=== PATIENT | female | born 1990 | race Hispanic/Latino ===

== ENCOUNTER 2018-12-13 17:00 | Inpatient (IN) | payer BC, MEDICAID ==
[~2018-12-13] VITALS: Ht 152.4 cm; Wt 73.9 kg
[2018-12-20] MEDS ORDERED: LACTATED RINGERS 1000ML 1,000 ML IV ONE (08:57)
[2018-12-20] MEDS ORDERED: LACTATED RINGERS 1000ML 1,000 ML IV SCH ×2 (09:00)
[2018-12-20] MEDS ORDERED: CEFAZOLIN SODIUM 1 GM VIAL IVP PRN ×2 (09:00)
[2018-12-20] MEDS ORDERED: LACTATED RINGERS 1000ML 1,000 ML IV PRN (09:01)
[2018-12-20 09:10] LABS: HEMATOCRIT 38.2 % (36-48); MEAN CORPUSCULAR HEMOGLOBIN 29.8 pg (27.0-33.0); MEAN CORPUSCULAR HGB CONC 34.4 g/dL (32.0-36.0); MEAN CORPUSCULAR VOLUME 86.6 fL (79-99); PLATELET COUNT (AUTO) 259 K/uL (130-400); RED BLOOD CELL COUNT(AUTO) 4.41 MIL/uL (4.00-5.50); RED CELL DISTRIBUTION WIDTH 16.5 % (11.0-15.5); WHITE BLOOD COUNT (AUTO) 7.7 K/uL (4.8-10.8)
[2018-12-20 09:11] LABS: APPEARANCE,URINE Clear (CLEAR); BILIRUBIN,URINE Negative (NEGATIVE); COLOR,URINE Yellow (YELLOW); GLUCOSE, URINE (UA) Negative (NEGATIVE); KETONES,URINE Negative (NEGATIVE); LEUKOCYTE ESTERASE ,URINE Trace (NEGATIVE); NITRATE,URINE Negative (NEGATIVE); OCCULT BLOOD,URINE Negative (NEGATIVE); PH,URINE 6.5 (5.0-8.0); PROTEIN,URINE Negative (NEGATIVE); UROBILINOGEN,URINE 0.2 mg/dL (0.2-1.0)
[2018-12-20 09:26] LABS: BACTERIA,URINE Rare /HPF (None Seen); MUCUS,URINE Rare LPF (None Seen); RBC,URINE 0-1 /HPF (0-1); SQUAMOUS EPITHELIAL CELL,UR Moderate /HPF (0-2); WBC,URINE 0-1 /HPF (0-1)
[2018-12-20] MEDS ORDERED: OXYTOCIN 10 USP UNITS/ML ONE (13:33)
[2018-12-20] MEDS ORDERED: DURAMORPH PF1 MG/ML 10ML AMP IV ONE (13:33)
[2018-12-20] MEDS ORDERED: GLYCOPYRROLATE 1 MG/5 ML SYRINGE ONE (13:45)
[2018-12-20] MEDS ORDERED: EPHEDRINE SULFATE 50 MG/ML AMPULE ONE (13:47)
[2018-12-20] MEDS ORDERED: ONDANSETRON HCL 4 MG/2 ML VIAL ONE (14:13)
[2018-12-20 16:25] VITALS: BP 151/55
--- NOTE | 2018-12-20 16:30 | NUR ---
ASSESSMENT FUNDUS IS FIRM, BLEEDING IS SCANT. DRESSING IS DRY AND INTACT. ASSISTED PATIENT IN LATCHING BABY SUCCESSFULLY TO RIGHT BREAST. ORIENTED PATIENT TO ROOM. AT BEDSIDE. CALL LIGHT LEFT IN REACH.
[2018-12-20] MEDS ORDERED: SODIUM CHLORIDE 0.9% 10 ML VIAL IVP PRN (17:15)
[2018-12-20] MEDS ORDERED: PROMETHAZINE HCL 25 MG/ML 1ML AMPULE IM PRN (17:15)
[2018-12-20] MEDS ORDERED: MEPERIDINE-PF 75 MG/ML SYG IM PRN (17:15)
[2018-12-20] MEDS ORDERED: DEXTROSE 5 %-0.45 % NACL 1,000 ML IV PRN (17:15)
[2018-12-20] MEDS ORDERED: OXYTOCIN-LR 20 UNITS/1000 ML 1,000 ML IV PRN (17:15)
[2018-12-20] MEDS ORDERED: NALOXONE HCL 0.4 MG/1 ML ML IVP PRN ×3 (18:30→18:45)
[2018-12-20] MEDS ORDERED: DiphenhydrAMINE HCL 50 MG/ML VIAL IVP PRN (18:45)
[2018-12-20] MEDS ORDERED: ONDANSETRON HCL 4 MG/2 ML VIAL IVP PRN (18:45)
[2018-12-20] MEDS ORDERED: EPHEDRINE SULFATE 50 MG/ML AMPULE IVP PRN (18:45)
[2018-12-20 19:18] VITALS: BP 115/55
--- NOTE | 2018-12-20 19:40 | NUR ---
Activity: Patient lying in bed with baby in her arms, IV of LR with 20 units of Pitocin infusing well, Islas Catheter patent. Fundus firm with small Lochia rubra. Plan of care discussed with patient, verbalizes understanding.
[2018-12-20] MEDS ORDERED: PREN-66 PO (21:49)
[2018-12-20] MEDS ORDERED: FERR-82 PO (21:49)
[2018-12-20 23:20] VITALS: BP 96/56
[2018-12-21 03:30] VITALS: BP 101/64
[2018-12-21] MEDS ORDERED: MEPERIDINE-PF 50 MG/ML SYG ONE (03:34)
[2018-12-21] MEDS ORDERED: MEPERIDINE-PF 25 MG/ML SYG ONE (03:35)
--- NOTE | 2018-12-21 06:45 | NUR ---
Activity: Patient up at bedside chair, Islas catheter taken out. Patient tolerated it well. Advice to call foe help if needed specifically when she gets up to the bathroom the first time to prevent fall.
[2018-12-21 06:48] LABS: HEMATOCRIT 31.8 % (36-48); MEAN CORPUSCULAR HEMOGLOBIN 29.6 pg (27.0-33.0); MEAN CORPUSCULAR HGB CONC 33.8 g/dL (32.0-36.0); MEAN CORPUSCULAR VOLUME 87.4 fL (79-99); PLATELET COUNT (AUTO) 205 K/uL (130-400); RED BLOOD CELL COUNT(AUTO) 3.64 MIL/uL (4.00-5.50); RED CELL DISTRIBUTION WIDTH 16.4 % (11.0-15.5); WHITE BLOOD COUNT (AUTO) 11.6 K/uL (4.8-10.8)
[2018-12-21 07:42] VITALS: BP 96/56
[2018-12-21 08:12] LABS: HEPATITIS Bs ANTIGEN SCREEN P Negative (Negative)
[2018-12-21] MEDS: IBUPROFEN 600 MG TABLET PO PRN ×2 (09:14→17:49)
[2018-12-21] MEDS ORDERED: LANOLIN 30GM OINTMENT TP PRN (09:15)
[2018-12-21] MEDS: SIMETHICONE 80 MG TAB.CHEW PO PRN ×3 (09:15→21:38)
[2018-12-21] MEDS ORDERED: ACETAMINOPHEN EXTRA STRENGTH 500 MG TABLET PO PRN (09:15)
[2018-12-21] MEDS ORDERED: BISACODYL 10 MG SUPP.RECT RC PRN (09:15)
[2018-12-21] MEDS ORDERED: ACETAMINOPHEN-CODEINE 300/30MG TAB PO PRN (09:15)
[2018-12-21] MEDS ORDERED: HYDROCODONE/ACETAMINOPHEN 5/325 MG TAB PO PRN (09:15)
[2018-12-21 11:26] VITALS: BP 101/64
--- NOTE | 2018-12-21 13:25 | NUR ---
PATIENT REPORTED BEING ABLE TO VOID. 500 ML MEASURED IN NUN'S HAT
[2018-12-21 16:15] VITALS: BP 104/61
--- NOTE | 2018-12-21 16:20 | NUR ---
ACTIVITY PATIENT AMBULATING IN HALLWAY ACCOMPANIED BY SIGNIFICANT OTHER. ABDOMEN APPEARS DISTENDED. PATIENT STATES SHE HAS NOT PASSED FLATUS. DULCOLAX SUPPOSITORY OFFERED, PATIENT DECLINED. ADVISED PATIENT TO CONTINUE AMBULATING
[2018-12-21 19:15] VITALS: BP 120/69
[2018-12-21] MEDS: DOCUSATE SODIUM 100 MG CAP PO SCH (21:38)
[2018-12-21 23:35] VITALS: BP 104/65
[2018-12-22 03:47] VITALS: BP 109/58
[2018-12-22] MEDS: IBUPROFEN 600 MG TABLET PO PRN ×2 (06:37→17:28)
[2018-12-22 07:44] VITALS: BP 110/62
[2018-12-22] MEDS: SIMETHICONE 80 MG TAB.CHEW PO PRN ×2 (08:50→21:28)
[2018-12-22] MEDS: DOCUSATE SODIUM 100 MG CAP PO SCH ×2 (08:50→21:29)
[2018-12-22 11:07] VITALS: BP 102/57
[2018-12-22 15:42] VITALS: BP 108/65
--- NOTE | 2018-12-22 17:55 | NUR ---
PATIENT AMBULATING TO NURSERY TO FEED BABY. NO C/O DIZZINESS REPORTED.
[2018-12-22 19:34] VITALS: BP 108/73
[2018-12-23 00:26] VITALS: BP 101/51
[2018-12-23 03:41] VITALS: BP 121/78
[2018-12-23] MEDS: IBUPROFEN 600 MG TABLET PO PRN ×2 (03:46→08:57)
[2018-12-23 08:00] VITALS: BP 129/74
[2018-12-23] MEDS: DOCUSATE SODIUM 100 MG CAP PO SCH (08:55)
[2018-12-23] MEDS: SIMETHICONE 80 MG TAB.CHEW PO PRN (08:55)
--- NOTE | 2018-12-23 09:00 | NUR ---
DR. HOOK ROUNDED AND DISCHARGED PT TO HOME
[2018-12-23 13:06] VITALS: BP 120/79
--- NOTE | 2018-12-23 13:15 | NUR ---
DISCHARGE INSTRUCTIONS GIVEN AND VERBALIZED UNDERSTANDING INSTRUCTIONS GIVEN. HAS NO IV TO REMOVE. SCRIPT FOR TYLENOL #3 GIVEN AND INSTRUCTED ON DOSAGE FOR MOTRIN OVER THE COUNTER TO TAKE FOR MILD PAIN.
--- NOTE | 2018-12-23 13:30 | NUR ---
PATIENT WAS TAKEN VIA W/C TO FAMILY VEHICLE AND WAS DISCHARGED WITH BABY TO SPOUSE. PATIENT STABLE AND DENIES PAIN AT THIS TIME.
== END 2018-12-23 13:30 | disposition home or self-care (01) | DRG 788 ==
LOC: LDH 12-20 08:34 → EDSTATUS 12-20 10:30 → WSH 12-20 16:23
PROVIDERS: ADMIT Specialist; ATTEND Specialist
PROC: 10D00Z1 Extraction of Products of Conception, Low, Open Approach (ICD-10-PCS; principal; 2018-12-20 10:30)
DX: O36.63X0 Maternal care for excessive fetal growth, third trimester, not applicable or unspecified (principal); Z37.0 Single live birth; Z3A.41 41 weeks gestation of pregnancy; O34.40 Maternal care for other abnormalities of cervix, unspecified trimester
CPT/HCPCS: 36415; 59510; 81001; 85027; 86592; 86850; 86900; 86901; 87340; G0378; J0690; J2175; J2274; J2405; J2550; J2590; J3490; J7120

== ENCOUNTER 2021-06-22 05:56 | Inpatient (IN) | payer OTHER ==
[~2021-06-22] VITALS: Ht 152.4 cm; Wt 75.3 kg
[~2021-06-22 05:56] MED LIST: FERR-82 PO; PREN-66 PO
[2021-06-22] MEDS ORDERED: LACTATED RINGERS 1000ML 1,000 ML IV SCH (06:00)
[2021-06-22] MEDS ORDERED: CEFAZOLIN SODIUM 1 GM VIAL IVP PRN (06:00)
[2021-06-22 07:04] LABS: HEMATOCRIT 33.5 % (36-48); MEAN CORPUSCULAR HEMOGLOBIN 27.2 pg (27.0-33.0); MEAN CORPUSCULAR HGB CONC 32.5 g/dL (32.0-36.0); MEAN CORPUSCULAR VOLUME 83.5 fL (79-99); RED BLOOD CELL COUNT(AUTO) 4.01 MIL/uL (4.00-5.50); RED CELL DISTRIBUTION WIDTH 14.6 % (11.0-15.5)
[2021-06-22] MEDS ORDERED: OXYTOCIN-LR 20 UNITS/1000 ML 1,000 ML IV ONE (07:54)
[2021-06-22] MEDS ORDERED: CALDOLOR 800MG+NS 250ML 250 ML IV ONE (08:00)
[2021-06-22] MEDS ORDERED: CALDOLOR 800MG+NS 250ML 250 ML IV PRN (08:00)
[2021-06-22] MEDS ORDERED: MORPHINE PF 100MG/10ML AMP IV ONE (09:18)
[2021-06-22] MEDS ORDERED: EPHEDRINE SULFATE 50 MG/ML AMPULE ONE (09:27)
[2021-06-22] MEDS ORDERED: ONDANSETRON 4MG INJ ONE (09:32)
[2021-06-22] MEDS ORDERED: PROMETHAZINE HCL 25 MG/ML 1ML AMPULE IM PRN (10:30)
[2021-06-22] MEDS ORDERED: OXYTOCIN-LR 20 UNITS/1000 ML 1,000 ML IV PRN (10:30)
[2021-06-22] MEDS ORDERED: MEPERIDINE-PF 75 MG/ML SYG IM PRN (10:30)
[2021-06-22] MEDS ORDERED: 0.9%NACL 10ML VIAL IVP PRN (10:30)
[2021-06-22] MEDS ORDERED: DiphenhydrAMINE HCL 50 MG/ML VIAL IVP PRN (11:30)
[2021-06-22] MEDS ORDERED: ONDANSETRON 4MG INJ IVP PRN (11:30)
[2021-06-22] MEDS ORDERED: ROPIVACAINE 0.2% 100ML VIAL 100 ML EP SCH (11:30)
[2021-06-22] MEDS ORDERED: EPHEDRINE SULFATE 50 MG/ML AMPULE IVP PRN (11:30)
[2021-06-22] MEDS ORDERED: NALOXONE HCL 0.4 MG/1 ML ML IVP PRN ×2 (11:30)
[2021-06-22 12:20] VITALS: BP 109/60
[2021-06-22 12:30] VITALS: BP 103/67
[2021-06-22 16:18] VITALS: BP 115/69
[2021-06-22] MEDS: DEXTROSE 5 %-0.45 % NACL 1,000 ML IV PRN (16:48)
[2021-06-22] MEDS: CALDOLOR 800MG+NS 250ML 250 ML IV SCH (18:25)
[2021-06-22 19:40] VITALS: BP 114/72
[2021-06-22 23:20] VITALS: BP 105/75
[2021-06-23] MEDS ORDERED: ACETAMINOPHEN WITH CODEINE 1 TAB TAB PO PRN (00:30)
[2021-06-23] MEDS: DEXTROSE 5 %-0.45 % NACL 1,000 ML IV PRN (01:32)
[2021-06-23] MEDS: CALDOLOR 800MG+NS 250ML 250 ML IV SCH (02:01)
[2021-06-23 03:06] VITALS: BP 96/56
[2021-06-23 07:55] VITALS: BP 131/76
[2021-06-23] MEDS ORDERED: HYDROCODONE/ACETAMINOPHEN 5/325 MG TAB PO PRN (08:30)
[2021-06-23] MEDS ORDERED: IBUPROFEN 600 MG TABLET PO PRN (08:30)
[2021-06-23] MEDS ORDERED: ACETAMINOPHEN 500 MG TABLET PO PRN (08:30)
[2021-06-23] MEDS ORDERED: BISACODYL 10 MG SUPP.RECT RC PRN (08:30)
[2021-06-23] MEDS: DOCUSATE SODIUM 100 MG CAP PO SCH ×2 (08:40→21:00)
[2021-06-23] MEDS: SIMETHICONE 80 MG TAB.CHEW PO PRN ×3 (08:40→20:47)
[2021-06-23] MEDS: ACETAMINOPHEN WITH CODEINE 1 TAB TAB PO PRN ×2 (08:42→15:59)
[2021-06-23] MEDS: IBUPROFEN 800 MG TAB PO SCH ×2 (10:52→18:31)
[2021-06-23 11:15] VITALS: BP 103/66
[2021-06-23 13:01] LABS: HEMATOCRIT 33.4 % (36-48); MEAN CORPUSCULAR HEMOGLOBIN 26.8 pg (27.0-33.0); MEAN CORPUSCULAR HGB CONC 31.7 g/dL (32.0-36.0); MEAN CORPUSCULAR VOLUME 84.6 fL (79-99); RED BLOOD CELL COUNT(AUTO) 3.95 MIL/uL (4.00-5.50); RED CELL DISTRIBUTION WIDTH 14.6 % (11.0-15.5); WHITE BLOOD COUNT (AUTO) 11.6 K/uL (4.8-10.8)
[2021-06-23] MEDS ORDERED: DIPH,PERTUSS(ACELL),TET VAC/PF 0.5 ML VIAL IM ONE (16:00)
[2021-06-23 17:03] VITALS: BP 104/62
[2021-06-23 19:50] VITALS: BP 115/66
[2021-06-23 23:15] VITALS: BP 109/68
[2021-06-24] MEDS: IBUPROFEN 800 MG TAB PO SCH ×2 (02:33→09:30)
[2021-06-24 04:13] VITALS: BP 98/63
[2021-06-24] MEDS: ACETAMINOPHEN WITH CODEINE 1 TAB TAB PO PRN (04:44)
[2021-06-24 07:30] VITALS: BP 106/55
[2021-06-24] MEDS: DOCUSATE SODIUM 100 MG CAP PO SCH (09:30)
[2021-06-24] MEDS: SIMETHICONE 80 MG TAB.CHEW PO PRN (09:30)
[2021-06-24] MEDS ORDERED: IBUP-2077 PO (11:27)
[2021-06-24] MEDS ORDERED: DOCU-116 PO (11:28)
[2021-06-24] MEDS ORDERED: ACET-2079 PO (11:28)
[2021-06-24 11:45] VITALS: BP 112/58
== END 2021-06-24 12:40 | disposition home or self-care (01) | DRG 785 ==
LOC: OBSVTOIN 05:56 → LDH 05:56 → WSH 12:25
PROVIDERS: ADMIT Obstetrics & Gynecology; ATTEND Obstetrics & Gynecology
PROC: 0UB70ZZ Excision of Bilateral Fallopian Tubes, Open Approach (ICD-10-PCS; 2021-06-22)
PROC: 10D00Z1 Extraction of Products of Conception, Low, Open Approach (ICD-10-PCS; principal; 2021-06-22 07:30)
DX: O34.211 Maternal care for low transverse scar from previous cesarean delivery (principal); Z37.0 Single live birth; Z3A.39 39 weeks gestation of pregnancy; Z30.2 Encounter for sterilization; O99.892 Other specified diseases and conditions complicating childbirth; N73.6 Female pelvic peritoneal adhesions (postinfective)
CPT/HCPCS: 36415; 85027; 86592; 86701; 86850; 86900; 86901; 87340; 87390; 87635; 90715; G0378; J0690; J1200; J1741; J2274; J2405; J2590; J3490